=== PATIENT | male | born 1975 | race Asian ===

== ENCOUNTER 2023-12-08 19:49 | Emergency (ER) | payer OTHER, SELFPAY ==
[2023-12-08] VITALS (7 sets, daily range): BP systolic 161–190; BP diastolic 80–139; BMI 29.1
--- NOTE | 2023-12-08 20:01 | ED.PDOC.TRB ---
ED Provider Triage
-
Patient seen by provider in Triage?: Seen in Triage
*Initial assessment performed in triage to expedite workup*
48-year-old male presenting with severe acute onset headache for the past 3 days. No history of primary headaches. Headache was gradual in onset but with difficulty ambulating and vomiting over the past 2 days. Headache has been unrelenting since
that time. Also reports 'vision distortion' but denies diplopia vision loss. No chest pain or trouble breathing. No history of bleeding disorders
Appears uncomfortable and somewhat somnolent, no obvious lateralizing logic deficits, no gaze preference, strength in bilateral upper and lower extremities. Due to the acute nature of the headache will obtain a CT of the head
[2023-12-08] MEDS: CARDENE 200 IV (21:02)
--- NOTE | 2023-12-08 21:02 | ED.GENMED ---
History of Present Illness
General
Chief Complaint: Headache
Source: patient and family (son)
Time Seen by Provider: 12/08/23 20:25
Travel History
Have you had any contact with someone who has COVID-19?: No
Do you have any symptoms of coronavirus? Fever > 100 degrees, chills, cough, shortness of breath, sore throat, loss of taste or smell, muscle aches, or headache?: No
History of Present Illness
History of Present Illness:
48-year-old male presents to the emergency room complaining of a headache. Headache began 3 days ago. It started suddenly. Patient states on the day the symptoms began he was feeling lethargic and had a stiff neck. He drank a [employer] energy
drink to energize himself and almost immediately felt a sudden onset of severe pain in his head. Headache has continued since then. He feels nauseous and has been vomiting. He feels off balance. He denies any focal weakness. He has been taking
ibuprofen and Tylenol for the pain. The last dose of ibuprofen was over 24 hours ago. He does have a history of hypertension.
Phy Exam
Physical Exam
Physical Exam:
General: Awake, Alert, Oriented X3. Appears uncomfortable
Vitals: Hypertensive
Head: Atraumatic
Eyes: Pupils equal, EOMI
Throat: Airway intact, no exudates
Neck: Trachea midline, positive nuchal rigidity
Lungs: Clear and equal b/l
Heart: Regular rate, no murmurs
Abd: Soft, Nontender, No pulsatile mass
Neuro: Cranial nerves intact, muscle strength equal bilaterally, cerebellar exam normal
Skin: Warm, dry, no rash
Extremities: pulses equal b/l, no edema
Course
Orders/Labs/Results
Orders:
Orders
12/08/23 20:01
CT Head W/o Iv Contrast Urgent
Comment:
Reason For Exam: severe headache
12/08/23 20:36
Nicardipine 40 mg/200 ml [Cardene] 40 mg in 200 ml .ROUTE .STK-MED
12/08/23 21:00
Nicardipine 40 mg/200 ml [Cardene] 40 mg in 200 ml IV PER PROTOCOL
Initial dose in mg/hr, then titrate:: 5
Titrate to keep:: SBP 120 - 140 mmHg
Titrate by mg/hr:: 2.5 mg/hr
Frequency of titrations (minutes):: 5-15 minutes
Maximum dose in mg/hr:: 15
Begin to taper infusion when:: Remained at goal for 2hrs
Taper by mg/hr:: 2.5 mg/hr
Frequency of taper (minutes) if patient maintains goal:: every 15-30 minutes
Taper to off?: Yes
If infusion off & no longer maintaining goal:: Contact Provider
Vital Signs
Initial and Last Documented VS:
Initial Vital Signs
Temp Pulse Resp BP Pulse Ox
97.9 F 65 18 190/116 98
12/08/23 19:59 12/08/23 19:59 12/08/23 19:59 12/08/23 19:59 12/08/23 19:59
Last Documented Vital Signs
Temp Pulse Resp BP Pulse Ox
97.9 F 103 26 178/95 95
12/08/23 19:59 12/08/23 21:20 12/08/23 21:20 12/08/23 21:20 12/08/23 21:15
MDM/Problems Addressed
Differential Diagnosis Includes:
Subarachnoid hemorrhage, migraine, space-occupying lesion, subdural
MDM/Problems Addressed:
Patient presents with a severe headache that began suddenly 3 days ago. He has a subarachnoid hemorrhage noted on CT. Patient is significantly hypertensive. Nicardipine infusion ordered. Discussed patient's presentation with Dr. Hurtado who is
on-call for neurosurgery at the [facility]. He accepts patient as a transfer level 0. We will transport the patient by helicopter given the potential severity of the diagnosis and given the fact arranging ground
transfer takes hours in addition to the 1 hour transport time.
Chronic conditions affecting care: HTN
*Radiology
Radiology exam reviewed: radiology read reviewed
*Pulse Oximetry
Patient hypoxic: no
*Jute Bag Clipper Interpretation
Rate: normal
Interpretation: normal
Rhythm: sinus
*Critical Care Note
Total Time (30-74mins, 75-104mins- exclusive of procedures): 35 min
comment:
Critical care statement: A total of 35 minutes of critical care time was provided for this patient. This includes management of unstable vital signs, evaluation of the patient at bedside, reviewing the patient's pertinent medical records, discussion
with consultants, review of old EKGs and review of pertinent medical records. This time with separate from time utilized to perform the aforementioned documented procedures
ED Attending Note
-
Portions of this chart may have been created with voice recognition software.� Occasional wrong word or��sound alike� substitutions may have occurred due to the inherent limitations of voice recognition software.
Discharge Plan
Departure
Patient Disposition: Acute Care Hospital
Date of Disposition: 12/08/23
Time of Disposition: 21:02
Condition: Serious
Discharge Problem:
Subarachnoid hemorrhage
Prescriptions:
No Action
atorvastatin 10 mg tablet
10 mg PO DAILY@1600
ibuprofen [Motrin] 400 mg Tablet
400 mg PO Q6H PRN (Reason: mild pain/fever)
lisinopril-hydrochlorothiazide 10-12.5 mg tablet
1 tab PO DAILY@1600
Tylenol
2 tab PO Q6H PRN (Reason: mild pain/fever)
Referrals:
Yane Herrera MD [Family Provider] -
Hospital Transfer
Other hospital: [facility]
I certify that the patient requires transfer: Yes
Discussed case with accepting physician: Dr. Hurtado
Reason for transfer: availability of service
Interventions
Interventions:
*Risk Screen - Suicide Last Done: 12/08/23 19:59
*General Assessment Last Done: 12/08/23 19:59
*Neglect/Abuse Screening Last Done: 12/08/23 19:59
ED- Fall Risk Assessment Last Done: 12/08/23 20:47
*ED COVID-19 Vaccine History Last Done: 12/08/23 20:46
*Nursing Disposition Last Done: 12/08/23 21:37
ED- Neurological Assessment Last Done: 12/08/23 20:45
Discharge Date and Time
Discharge Date/Time: 12/08/23 21:38
Print Language: HAITIAN
== END 2023-12-08 21:38 | disposition short-term general hospital (02) ==
LOC: EMR 19:49
PROVIDERS: EMERGENCY PHYSICIAN Emergency Medicine; FAMILY PHYSICIAN Internal Medicine Geriatric Medicine
DX: I60.9 Nontraumatic subarachnoid hemorrhage, unspecified (principal); R11.2 Nausea with vomiting, unspecified; R51.9 Headache, unspecified; R26.9 Unspecified abnormalities of gait and mobility; H53.8 Other visual disturbances; I10 Essential (primary) hypertension
CPT/HCPCS: 99291; 96365; 70450